=== PATIENT | female | born 1985 | race Two or more races ===

== ENCOUNTER → 2020-10-18 08:00 | Outpatient (CLI) | payer OTHER ==
[~2020-10-18 08:00] MED LIST: FORTAMET1000 MG PO; LANTUS
== END | disposition home or self-care (01) ==
LOC: LAB 08:00 → ADM 08:45 → CIR.AMB 10-24 08:45 → EDSTATUS 10-24 08:45 → CIR.AMB 10-24 17:15
PROVIDERS: ATTEND Obstetrics & Gynecology Obstetrics
DX: N85.8 Other specified noninflammatory disorders of uterus (principal); Z03.818 Encounter for observation for suspected exposure to other biological agents ruled out